=== PATIENT | female | born 1990 | race Caucasian/White ===

== ENCOUNTER → 2023-10-12 08:34 | Outpatient (REF) | payer OTHER, SELFPAY | LOC: PNTC 08:34 | PROVIDERS: ATTENDING PHYSICIAN Nurse Practitioner Family | DX: Z36.0 Encounter for antenatal screening for chromosomal anomalies (principal); Z36.82 Encounter for antenatal screening for nuchal translucency | CPT/HCPCS: 36415; 76801; 76813 ==

== ENCOUNTER → 2023-12-06 15:43 | Outpatient (REF) | payer OTHER, SELFPAY | LOC: PNTC 15:43 | PROVIDERS: ATTENDING PHYSICIAN Obstetrics & Gynecology | DX: O09.529 Supervision of elderly multigravida, unspecified trimester (principal) | CPT/HCPCS: 76811 ==

== ENCOUNTER → 2024-01-25 16:11 | Outpatient (REF) | payer OTHER, SELFPAY | LOC: PNTC 16:11 | PROVIDERS: ATTENDING PHYSICIAN Obstetrics & Gynecology | DX: O34.219 Maternal care for unspecified type scar from previous cesarean delivery (principal) | CPT/HCPCS: 76816 ==

== ENCOUNTER → 2024-03-07 16:46 | Outpatient (REF) | payer OTHER, SELFPAY | LOC: PNTC 16:46 | PROVIDERS: ATTENDING PHYSICIAN Obstetrics & Gynecology | DX: O34.219 Maternal care for unspecified type scar from previous cesarean delivery (principal) | CPT/HCPCS: 76816 ==

== ENCOUNTER 2024-03-31 16:15 | Observation (INO) | payer OTHER, SELFPAY ==
[2024-03-31 16:22] VITALS: BP 108/70; BMI 25.9
== END 2024-03-31 17:44 | disposition home or self-care (01) ==
LOC: LDRP 16:15
PROVIDERS: ADMITTING PHYSICIAN Obstetrics & Gynecology
DX: O47.1 False labor at or after 37 completed weeks of gestation (principal); R10.2 Pelvic and perineal pain; Z3A.37 37 weeks gestation of pregnancy
CPT/HCPCS: 59025; G0378

== ENCOUNTER 2024-04-18 06:53 | Inpatient (IN) | payer OTHER, SELFPAY ==
[2024-04-18 06:59] VITALS: BP 123/78; BMI 26.5
[2024-04-18] MEDS: LR 1000 IV ×2 (07:31→08:35)
[2024-04-18 07:43] LABS: Hematocrit 34.8 % (37.0-47.0); Hemoglobin 11.8 g/dL (12.0-16.0); Mean Corp Hgb Conc. 33.9 g/dL (33.0-37.0); Mean Corpuscular Hgb 28.2 pg (27.0-31.0); Mean Corpuscular Volume 83.3 fL (81.0-99.0); Mean Platelet Volume 10.8 fL (7.4-10.4); Platelet Count 203 10^3/uL (130-400); Red Blood Cell Count 4.18 10^6/uL (4.20-5.40); Red Cell Dist. Width 13.9 % (11.5-14.5); White Blood Cell Count 10.6 10^3/uL (4.8-10.8)
[2024-04-18] MEDS: BICITRA 30 ML PO (09:40)
[2024-04-18] MEDS: TYLENOL 1000 MG PO (09:40)
[2024-04-18] MEDS: ANCEF 10 IV (10:01)
[2024-04-18] MEDS: TORADOL 15 MG IV ×2 (13:47→20:02)
[2024-04-18] MEDS: PITOCIN 30 UNITS/NSS 500 ML IV (13:48)
[2024-04-18] MEDS: PRENATAL PLUS 1 TABLET PO (21:58)
[2024-04-18] MEDS: TYLENOL 650 MG PO (23:36)
[2024-04-19] MEDS: TORADOL 15 MG IV ×2 (02:00→07:58)
[2024-04-19 05:03] LABS: Hematocrit 34.8 % (37.0-47.0); Hemoglobin 11.5 g/dL (12.0-16.0); Mean Corpuscular Hgb 28.2 pg (27.0-31.0); Mean Corpuscular Volume 85.3 fL (81.0-99.0); Platelet Count 186 10^3/uL (130-400); Red Blood Cell Count 4.08 10^6/uL (4.20-5.40); Red Cell Dist. Width 13.7 % (11.5-14.5); White Blood Cell Count 12.1 10^3/uL (4.8-10.8)
[2024-04-19] MEDS: MOTRIN 600 MG PO ×2 (14:00→22:36)
[2024-04-19] MEDS: PERCOCET 5/325 1 TABLET PO ×2 (18:15→22:35)
[2024-04-19] MEDS: PRENATAL PLUS 1 TABLET PO (22:35)
[2024-04-19] MEDS: SENOKOT-S 1 TABLET PO (22:35)
[2024-04-20] MEDS: MOTRIN 600 MG PO (04:32)
[2024-04-20] MEDS: TYLENOL 650 MG PO (04:32)
[2024-04-20] MEDS: PERCOCET 5/325 1 TABLET PO (08:08)
[2024-04-20 12:42] LABS: Syphilis/T. pallidum Ab Reflex Negative (Negative)
--- NOTE | 2024-04-21 17:31 | W.DS.TRANS ---
DC Summary - [employer]st
-
Discharge Instructions:
Discharge Diagnosis/Procedures section
Instructions:
Stand-Alone Forms: LDRP Delivery
Changes to Home Medications: No
Discharge Medications:
DC Medications w/original date entered in [facility]
pren vit comb.1-iron cb-FA-DSS 90 mg-1 mg-50 mg tablet 1 tab PO HS Supplement 04/19/20
iron-vit C-vit E81-vucfn acid 100 mg-250 mg-25 mcg-1 mg tablet (FE C Plus) 1 ea PO DAILY #30 tabs 11/18/21
Vitamin C 1 tab PO DAILY 04/18/24
acetaminophen 325 mg tablet 650 mg (2 x 325 mg) PO Q4HPRN PRN mild pain #0 tabs 04/20/24
ibuprofen 600 mg tablet 600 mg PO Q6HPRN PRN cramps #40 tabs 04/20/24
oxycodone-acetaminophen 5 mg-325 mg tablet 1 tab PO Q4HPRN PRN moderate pain #10 tabs 04/20/24
sennosides 8.6 mg-docusate sodium 50 mg tablet 1 tab PO DAILYPRN PRN constipation #0 tabs 04/20/24
simethicone 80 mg chewable tablet 80 mg PO TIDPRN PRN flatulence #0 tabs 04/20/24
Home Medication Changes
Pending Results: Yes
Additional Pending Results:
pathology from salpingectomy
Total time spent discharging patient (in min): 20
== END 2024-04-20 11:30 | disposition home or self-care (01) | DRG 785 ==
LOC: LDRP 06:53
PROVIDERS: ADMITTING PHYSICIAN Obstetrics & Gynecology
PROC: 10D00Z1 Extraction of Products of Conception, Low, Open Approach (ICD-10-PCS; 2024-04-18)
PROC: 0UT70ZZ Resection of Bilateral Fallopian Tubes, Open Approach (ICD-10-PCS; 2024-04-18)
DX: O34.211 Maternal care for low transverse scar from previous cesarean delivery (principal); Z3A.39 39 weeks gestation of pregnancy; Z37.0 Single live birth; Z30.2 Encounter for sterilization; O99.02 Anemia complicating childbirth; D64.9 Anemia, unspecified
CPT/HCPCS: 88302; 58605; 85027; 86780; 86850; 86900; 86901

== ENCOUNTER 2025-01-14 11:58 | Emergency (ER) | payer OTHER, SELFPAY ==
[2025-01-14 12:00] VITALS: BP 105/76
[2025-01-14 12:24] LABS: % Basophils 0.6 % (0-2); % Eosinophils 3.4 % (0-6); % Immature Granulocytes 0.2 % (0-0.5); % Lymphocytes 32.6 % (20.5-51.1); % Monocytes 7.2 % (1.7-9.3); Absolute Eosinophils 0.2 10^3/uL (0-0.7); Absolute Lymphocytes 1.6 10^3/uL (1.2-3.4); Absolute Monocytes 0.4 10^3/uL (0.1-0.6); Absolute Neutrophils 2.8 10^3/uL (1.4-6.5); Hematocrit 35.9 % (37.0-47.0); Hemoglobin 11.8 g/dL (12.0-16.0); Mean Corp Hgb Conc. 32.9 g/dL (33.0-37.0); Mean Corpuscular Volume 85.1 fL (81.0-99.0); Nucleated Red Blood Cells % 0 %; Platelet Count 193 10^3/uL (130-400); Red Blood Cell Count 4.22 10^6/uL (4.20-5.40); Red Cell Dist. Width 13.2 % (11.5-14.5)
[2025-01-14 12:36] LABS: HCG, Serum Qualitative Screen Negative
[2025-01-14 12:38] LABS: ALT (SGPT) 25 U/L (0-35); AST (SGOT) 25 U/L (14-36); Albumin 4.3 g/dl (3.5-5.0); Alkaline Phosphatase 56 U/L (38-126); Blood Urea Nitrogen 12 mg/dl (7-17); Calcium 9.1 mg/dl (8.4-10.2); Carbon Dioxide 27 mmol/L (22-30); Chloride 107 mmol/L (98-107); Glucose 111 mg/dl (70-99); Potassium 4.3 mmol/L (3.5-5.1); Sodium 141 mmol/L (135-145); Total Bilirubin 0.5 mg/dl (0.2-1.3); Total Protein 6.7 g/dl (6.3-8.2); eGFR > 60.00
[2025-01-14 13:23] LABS: Erythrocyte Sed Rate 12 mm/hour (0-20)
--- NOTE | 2025-01-14 13:26 | ED.GENMED ---
History of Present Illness
General
Chief Complaint: Musculo-Skeletal Complaint
Source: patient
Exam Limitations: none
Time Seen by Provider: 01/14/25 12:39
Nursing documentation reviewed up to this point in time: agreed with
History of Present Illness
History of Present Illness:
34-year-old female has had 10 days of general body aches
Her 8-month-old had qiyz-zjpb-key-mouth disease 2 weeks ago, 2 days after his diagnosis she developed a rash on her left side abdomen and side that was itchy, the next day she developed itchiness in her vaginal area and called good Rx doctor and was
given a dose of Diflucan which resolved the itching. Her rash has since disappeared.
She has also developed general body aches, headaches and fatigue. She has taken ibuprofen which has resolved the headaches.
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
She states her lab work showed a WBC of 2.4 and was told it was most likely due to a viral illness. Otherwise labs were and Lyme test was pending
2 days ago she went to her cousin's wedding and noted that the back of her neck was 'really sore.' Yesterday she states no headache, but joints of wrist and elbows, shoulders, knees and neck have become more painful and her fingers feel swollen
that her wedding ring does not fit.
She states today she is even 'more achy.'
Past History
Past History
ED Past Medical History: None
ED Past Surgical History: None
Social History
Tobacco: Non-smoker
Alcohol: Occasional
Personal:
Living: with family
Review of Systems
Review of Systems
Allergies reviewed?: Yes
All Other Systems: ROS reviewed and negative except as documented in HPI and ROS
Constitutional: Reports fatigue; Denies fever
EENT: Denies sore throat
Respiratory: Denies cough or trouble breathing
Cardiac: Denies chest pain
ABD/GI: Denies abdominal pain, nausea, vomiting, diarrhea or anorexia
: Denies dysuria, frequency or difficulty voiding
Musculoskeletal: Reports joint pain and neck pain; Denies joint swelling
Skin: Reports no symptoms
Neurological: Reports headache (intermittent, none now); Denies dizzy, weakness or numbness
Phy Exam
Physical Exam
Physical Exam:
GENERAL: No acute distress. A&Ox3.
CONSTITUTIONAL: Afebrile.
EYES: clear, conjunctivae normal
ENMT: moist mucus membranes, Pharynx nl, TMs normal
RESPIRATORY: Regular respirations, nonlabored, lungs clear.
CARDIOVASCULAR: Regular rate and rhythm, no murmurs, no rubs.
GI: Soft, nontender, normal BS
MUSCULOSKELETAL: Moves with ease. Well perfused. All joints are full range of motion, no swelling, unable to elicit pain with palpation but patient states all of her joints ache.
SKIN: Warm, dry, pink. No rash
PSYCH: Normal mood and affect. Well kept, interactive and appropriate
NEUROLOGIC: Awake, alert and oriented. No focal neurological deficits
Course
Orders/Labs/Results
Orders:
Orders
01/14/25 12:04
Test Result ONCE
01/14/25 12:07
C-Reactive Protein Urgent
Comment: ADD ON
Complete Blood Count/With Diff Urgent
Comprehensive Metabolic Panel Urgent
Erythrocyte Sed Rate Urgent
Comment: ADD ON
HCG, Serum Qualitative Screen Urgent
Lyme Progressive Urgent
Comment: ADD ON
01/14/25 12:38
Add On- LAB Urgent
Tests Added?: CRP, sed rate
01/14/25 12:41
Add On- LAB Urgent
Tests Added?: Lyme progressive
01/14/25 13:52
Dexamethasone [Decadron] 10 mg PO NOW STA
Ibuprofen [Motrin] 600 mg PO NOW STA
Abnormal Lab Results
01/14/25
12:07
Hgb 11.8 L g/dL
(12.0-16.0)
Hct 35.9 L %
(37.0-47.0)
MCHC 32.9 L g/dL
(33.0-37.0)
MPV 11.0 H fL
(7.4-10.4)
Glucose 111 H mg/dl
(70-99)
01/14/25 12:07
01/14/25 12:07
Vital Signs
Initial and Last Documented VS:
Initial Vital Signs
Temp Pulse Resp BP Pulse Ox
97.6 F 81 16 105/76 100
01/14/25 12:00 01/14/25 12:00 01/14/25 12:00 01/14/25 12:00 01/14/25 12:00
Last Documented Vital Signs
Temp Pulse Resp BP Pulse Ox
97.6 F 72 18 97/65 100
01/14/25 12:00 01/14/25 14:57 01/14/25 13:53 01/14/25 14:57 01/14/25 14:57
MDM/Problems Addressed
Differential Diagnosis Includes:
Lyme's, viral illness
MDM/Problems Addressed:
34-year-old female has had 10 days of general body aches
Her 8-month-old had hltz-lqzt-bje-mouth disease 2 weeks ago, 2 days after his diagnosis she developed a rash on her left side abdomen and side that was itchy, the next day she developed itchiness in her vaginal area and called good Rx doctor and was
given a dose of Diflucan which resolved the itching. Her rash has since disappeared.
She has also developed general body aches, headaches and fatigue. She has taken ibuprofen which has resolved the headaches.
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
She states her lab work showed a WBC of 2.4 and was told it was most likely due to a viral illness. Otherwise labs were and Lyme test was pending
2 days ago she went to her cousin's wedding noted that the back of her neck was 'really sore.' Yesterday she states no headache, but joints of wrist and elbows, shoulders, knees and neck have become more painful and her fingers feel swollen that
her wedding ring does not fit.
She states today she is even 'more achy.'
CBC, CMP unremarkable
Sed rate, CRP WNL
Had neg Lyme test 2 days ago, report on her phone read by me.
Lyme test pending
Referred the Rheumatology prn
Pt ambulated out with normal gait at discharge
*Critical Care Note
Total Time (30-74mins, 75-104mins- exclusive of procedures): Not Applicable
ED Attending Note
-
Portions of this chart may have been created with voice recognition software.� Occasional wrong word or��sound alike� substitutions may have occurred due to the inherent limitations of voice recognition software.
Discharge Plan
Departure
Patient Disposition: Home (Routine Discharge)
Date of Disposition: 01/14/25
Time of Disposition: 14:18
Patient with high blood pressure during this ER visit?: No
Condition: Fair
Discharge Problem:
Generalized joint pain
Instructions: Muscle, joint, and bone pain - Discharge instructions
Prescriptions:
New
methylprednisolone [Medrol (Charles)] 4 mg tablets,dose pack
4 mg PO DAILY Qty: 21 0RF
Rx Instructions:
Taper as directed
No Action
pren vit comb.1-iron cb-FA-DSS 1 TAB tablet
1 tab PO HS
FE C Plus 1 EACH tablet
1 ea PO DAILY Qty: 30 0RF
Vitamin C
1 tab PO DAILY
ibuprofen 600 mg Tablet
600 mg PO Q6HPRN PRN (Reason: cramps) Qty: 40 0RF
simethicone 80 mg Tablet,Chewable
80 mg PO TIDPRN PRN (Reason: flatulence) Qty: 0 0RF
sennosides-docusate sodium 8.6-50 mg Tablet
1 tab PO DAILYPRN PRN (Reason: constipation) Qty: 0 0RF
acetaminophen 325 mg Tablet
650 mg PO Q4HPRN PRN (Reason: mild pain) Qty: 0 0RF
oxycodone-acetaminophen 5-325 mg Tablet
1 tab PO Q4HPRN PRN (Reason: moderate pain) Qty: 10 0RF
Referrals:
Joel Walker MD [Family Provider, Family Practice]
Activity Restrictions/Additional Instructions:
As we discussed, your workup here today shows nothing to explain your joint pains, nothing worrisome
Lyme test is pending
Lab work is normal.
You received a steroid, Decadron 10 mg here today.
I sent a prescription to your pharmacy for a steroid taper. Start it tomorrow
Call the Charging Board Operator office and make next available appointment
In the meantime, if you are not A LOT BETTER in one week and you cannot get in to see the Charging Board Operator, see your family doctor for re evaluation.
Interventions
Interventions:
*Risk Screen - Suicide Last Done: 01/14/25 12:02
*General Assessment Last Done: 01/14/25 13:54
*Neglect/Abuse Screening Last Done: 01/14/25 12:02
*ED- Fall Risk Assessment Last Done: 01/14/25 13:54
*ED COVID-19 Vaccine History Last Done: 01/14/25 13:54
*Nursing Disposition Last Done: 01/14/25 14:58
ED-Musculoskeletal Assessment Last Done: 01/14/25 13:53
Discharge Date and Time
Discharge Date/Time: 01/14/25 14:59
Print Language: CZECH
[2025-01-14] MEDS: MOTRIN 600 MG PO (14:04)
[2025-01-14] MEDS: DECADRON 10 MG PO (14:04)
[2025-01-14 14:57] VITALS: BP 97/65
== END 2025-01-14 14:59 | disposition home or self-care (01) ==
LOC: EMR 11:58
PROVIDERS: Emergency Medicine; EMERGENCY PHYSICIAN Emergency Medicine; FAMILY PHYSICIAN Family Medicine
DX: M25.50 Pain in unspecified joint (principal)
CPT/HCPCS: 99283; 80053; 84703; 85025; 85652; 86140; 86618